=== PATIENT | female | born 1985 | race Caucasian/White ===

== ENCOUNTER 2024-06-21 16:14 | Emergency (ER) | payer MEDICAID ==
[~2024-06-21] VITALS: Ht 175.3 cm; Wt 117.0 kg
[2024-06-21 16:17] VITALS: BP 126/79; PULSE 103; RESP 16; TEMP 99.1; O2SAT 96
[2024-06-21] MEDS ORDERED: AMOX-580 PO (17:30)
[2024-06-21] MEDS: amox tr/potassium clavulanate 875/125mg TAB PO ONE (17:34)
== END 2024-06-21 17:38 | disposition home or self-care (01) ==
LOC: ER 16:15
DX: L60.0 Ingrowing nail (principal); K08.89 Other specified disorders of teeth and supporting structures
CPT/HCPCS: 99283